=== PATIENT | male | born 1995 | race Two or more races ===

== ENCOUNTER 2020-05-14 00:58 | Emergency (ER) | payer MEDICAID ==
[~2020-05-14] VITALS: Ht 172.7 cm; Wt 77.1 kg
[2020-05-14 01:12] VITALS: BP 138/90
--- NOTE | 2020-05-14 01:12 | NUR ---
ED Nurse Note: pt ambulated into ed from home CO CP since 2100 this evening. Pt states that he had consumed edible marijuana which resulted in CP with some nausea. Pt aao x 4, ambulates with steady gait. VSS no ss of distress noted. Pt placed in gown on property assessment monitor. Awaiting ermd at bedside
--- NOTE | 2020-05-14 01:15 | NUR ---
ED Nurse Note: ERMD at bedside
--- NOTE | 2020-05-14 01:20 | NUR ---
ED Nurse Note: Anastasiia work sent to lab
[2020-05-14] MEDS ORDERED: Mylanta II UD 30ml ORAL ONE (01:30)
--- NOTE | 2020-05-14 01:30 | NUR ---
ED Nurse Note: all medications administered, pt tolerated well no ss of distress noted. will continue to monitor.
--- NOTE | 2020-05-14 01:42 | NUR ---
ED Nurse Note: xray at bedside
[2020-05-14 01:50] LABS: BASOPHILS % (AUTO) 1.2 % (0.0-2.0); EOSINOPHILS % (AUTO) 2.8 % (0.0-3.0); HEMATOCRIT 41.8 % (42.0-52.0); LYMPHOCYTES % (AUTO) 32.4 % (20.0-45.0); MEAN CORPUSCULAR VOLUME 86 FL (80-99); NEUTROPHILS % (AUTO) 56.6 % (45.0-75.0); PLATELET COUNT 229 K/UL (150-450); RED BLOOD COUNT 4.89 M/UL (4.70-6.10); RED CELL DISTRIBUTION WIDTH 11.4 % (11.6-14.8); WHITE BLOOD COUNT 9.8 K/UL (4.8-10.8)
[2020-05-14 02:01] LABS: ANION GAP 12 mmol/L (5-15); BLOOD UREA NITROGEN 17 mg/dL (7-18); CALCIUM 9.3 MG/DL (8.5-10.1); CARBON DIOXIDE 27 MMOL/L (21-32); CHLORIDE 101 MMOL/L (98-107); CREATININE 1.1 MG/DL (0.55-1.30); POTASSIUM 3.3 MMOL/L (3.5-5.1); SODIUM 139 MMOL/L (136-145)
[2020-05-14 02:05] LABS: ALANINE AMINOTRANSFERASE 42 U/L (12-78); ALBUMIN 4.1 G/DL (3.4-5.0); ALKALINE PHOSPHATASE 152 U/L (46-116); ASPARTATE AMINO TRANSFERASE 22 U/L (15-37); BILIRUBIN,TOTAL 0.2 MG/DL (0.2-1.0); CREATINE KINASE 150 U/L (26-308)
--- NOTE | 2020-05-14 03:07 | NUR ---
ED Nurse Note: all medications administered, pt tolerated well no ss of distress noted. will continue to monitor.
[2020-05-14] MEDS ORDERED: Morphine Sulfate 2mg/ml Inj(IV/IM USE ONLY) IVP ONE (03:15)
[2020-05-14 03:25] VITALS: BP 132/76
--- NOTE | 2020-05-14 03:48 | NUR ---
ED Nurse Note: Pt states IV causing pain. IV removed. No swelling, redness, warmth, or infiltration noted. ERMD aware.
--- NOTE | 2020-05-14 03:49 | Emergency Room Report ---
History of Present Illness General Chief Complaint: Chest Pain Source: Patient Present Illness HPI The patient presents with left-sided chest pain. He has had this pain before. He associates it with using marijuana. He feels sharp stabbing pain and points with one finger towards his left nipple the area. It is nonpleuritic. He rates the pain 7/10. Not exertional. He denies fevers or chills. There is no nausea or vomiting. It is somewhat positional. The pain causes him to feel somewhat anxious. He denies tingling in his hands, feet or around his mouth. The patient denies exposure to COVID-19 positive contacts. Risk factors for cardiac disease: Diabetes and smoking. No sore throat, palpitations, diarrhea, dysuria, abdominal pain, shortness of breath, joint pain, rashes, depression, visual changes, dizziness, headache. Allergies: Coded Allergies: No Known Allergies (Unverified , 05/14/20) COVID-19 Screening Contact w/high risk pt: No Experienced COVID-19 symptoms?: No COVID-19 Testing performed DENTAL FRONT OFFICE ASSISTANT: No Patient History Past Medical History: see triage record Social History: Reports: smoking, drug use - THC Social History Narrative from home Reviewed Nursing Documentation: PMH: Agreed; PSxH: Agreed Nursing Documentation-PMH Hx Diabetes: Yes Review of Systems All Other Systems: negative except mentioned in HPI Physical Exam Vital Signs Date Time Temp Pulse Resp B/P (MAP) Pulse Ox O2 Delivery O2 Flow Rate FiO2 05/14/20 01:02 98.4 57 16 138/90 (106) 98 Room Air Sp02 EP Interpretation: reviewed, normal General Appearance: well appearing, no apparent distress, GCS 15, non-toxic Head: normocephalic Eyes: bilateral eye PERRL, bilateral eye EOMI, bilateral eye Scleral Injection ENT: moist mucus membranes Neck: supple Respiratory: lungs clear, normal breath sounds Cardiovascular #1: regular rate, rhythm, no edema Cardiovascular #2: 2+ radial (R) Gastrointestinal: normal inspection, normal bowel sounds, non tender, no mass, non-distended Musculoskeletal: back normal, normal range of motion, no calf tenderness, gait/station normal Neurologic: alert, oriented x3, grossly normal Psychiatric: mood/affect normal - Slightly anxious Skin: no rash, warm/dry Medical Decision Making Diagnostic Impression: Primary Impression: Chest pain Qualified Codes: R07.9 - Chest pain, unspecified Additional Impression: Adverse reaction to cannabis Qualified Codes: T40.7X5A - Adverse effect of cannabis (derivatives), initial encounter ER Course Patient presents with chest pain and dysphoria after ingesting and smoking can nabis. Differential includes acute myocardial infarction, pneumothorax, pulmonary embolus, reflux esophagitis, esophageal spasm and adverse reaction to cannabis amongst others. Based on history and physical pulmonary embolus extremely unlikely. Patient evaluated with EKG, chest x-ray and labs. Patient treated with IV hydration, Tylenol, Mylanta and Pepcid. Patient placed on ca rdiac monitor. EKG normal sinus rhythm with minimal peaked T waves V1 V2. Chest x-ray poor inspiration. Normal CBC. Potassium minimally low. Troponin negative. Patient still complaining about 5/10 pain. Small dose of morphine administered. Pain resolved. No medical emergency at this time. Advised patient to abstain from cannabis. Advised patient follow-up with his own doctor. Patient stable for outpatient observation and treatment. Laboratory Tests Test 05/14/20 01:15 White Blood Count 9.8 K/UL (4.8-10.8) Red Blood Count 4.89 M/UL (4.70-6.10) Hemoglobin 15.0 G/DL (14.2-18.0) Hematocrit 41.8 % (42.0-52.0) L Mean Corpuscular Volume 86 FL (80-99) Mean Corpuscular Hemoglobin 30.7 PG (27.0-31.0) Mean Corpuscular Hemoglobin Concent 35.8 G/DL (32.0-36.0) Red Cell Distribution Width 11.4 % (11.6-14.8) L Platelet Count 229 K/UL (150-450) Mean Platelet Volume 8.2 FL (6.5-10.1) Neutrophils (%) (Auto) 56.6 % (45.0-75.0) Lymphocytes (%) (Auto) 32.4 % (20.0-45.0) Monocytes (%) (Auto) 7.0 % (1.0-10.0) Eosinophils (%) (Auto) 2.8 % (0.0-3.0) Basophils (%) (Auto) 1.2 % (0.0-2.0) Sodium Level 139 MMOL/L (136-145) Potassium Level 3.3 MMOL/L (3.5-5.1) L Chloride Level 101 MMOL/L (98-107) Carbon Dioxide Level 27 MMOL/L (21-32) Anion Gap 12 mmol/L (5-15) Blood Urea Nitrogen 17 mg/dL (7-18) Creatinine 1.1 MG/DL (0.55-1.30) Estimated Glomerular Filtration Rate > 60 mL/min (>60) Glucose Level 129 MG/DL (74-106) H Calcium Level 9.3 MG/DL (8.5-10.1) Total Bilirubin 0.2 MG/DL (0.2-1.0) Aspartate Amino Transferase (AST) 22 U/L (15-37) Alanine Aminotransferase (ALT) 42 U/L (12-78) Alkaline Phosphatase 152 U/L (46-116) H Total Creatine Kinase 150 U/L (26-308) Troponin I 0.003 ng/mL (0.000-0.056) Total Protein 8.4 G/DL (6.4-8.2) H Albumin 4.1 G/DL (3.4-5.0) Globulin 4.3 g/dL Albumin/Globulin Ratio 1.0 (1.0-2.7) EKG Diagnostic Results Rate: normal Rhythm: NSR ST Segments: no acute changes Rhythm Strip Diag. Results EP Interpretation: yes Rhythm: NSR, no PVC's, no ectopy Chest X-Ray Diagnostic Results Chest X-Ray Diagnostic Results : Chest X-Ray Ordered: Yes # of Views/Limited/Complete: 1 View Indication: Chest Pain EP Interpretation: Yes Interpretation: no consolidation, no effusion, no pneumothorax, other - Poor inspiration Impression: No acute disease Electronically Signed by: Electronically signed by Jose Jarrett MD Last Vital Signs Date Time Temp Pulse Resp B/P (MAP) Pulse Ox O2 Delivery O2 Flow Rate FiO2 05/14/20 04:00 98.4 85 16 135/82 99 Room Air Status: improved Disposition: HOME, SELF-CARE Condition: Improved Scripts Acetaminophen (Tylenol) 325 Mg Tablet 650 MG ORAL Q6H PRN for Prn Pain/Headache/Temp > 101, #20 TAB 0 Refills Prov: Jose Jarrett MD 05/14/20 Famotidine* (Pepcid 20mg tablet*) 20 Mg Tablet 20 MG ORAL DAILY for Gerd, #20 TAB 0 Refills Prov: Jose Jarrett MD 05/14/20 Referrals: NOT CHOSEN IPA/,REFERRING (PCP) Jose Jarrett MD May 14, 2020 03:49
--- NOTE | 2020-05-14 03:50 | NUR ---
ED Nurse Note: ERMD at bedside
[2020-05-14] MEDS ORDERED: FAMOTIDINE20 MG ORAL (03:52)
[2020-05-14] MEDS ORDERED: TYLENOL325 MG ORAL (03:52)
[2020-05-14 04:00] VITALS: BP 135/82
--- NOTE | 2020-05-14 04:00 | NUR ---
ER DISCHARGE NOTE: Patient is cleared to be discharged home per ERMD, pt is aox4, 99% on room air, with stable vital signs. pt was given dc and prescription instructions, pt was able to verbalize understanding, pt id band and iv site removed without complications. pt is able to ambulate with steady gait. pt took all belongings.
--- NOTE | 2020-05-16 06:18 | Diagnostic Imaging Report ---
EXAM: XR Chest, 1 View CLINICAL HISTORY: CP TECHNIQUE: Frontal view of the chest. COMPARISON: No relevant prior studies available. FINDINGS/ IMPRESSION: There are low lung volumes with resultant bronchovascular crowding, limiting evaluation. Mild increased streaky opacification of the right mid to lower thorax is noted, nonspecific. This may represent focus of infection, inflammation, or asymmetric edema. Consider correlation with chest CT for better characterization. There is no definite pleural effusion or pneumothorax. However, the lung bases are not well evaluated due to poor inspiration. The heart size is mildly prominent.
== END 2020-05-14 04:00 | disposition home or self-care (01) ==
LOC: EMR 01:22
DX: R07.9 Chest pain, unspecified (principal); T40.7X5A Adverse effect of cannabis (derivatives), initial encounter; X58.XXXA Exposure to other specified factors, initial encounter; Y92.9 Unspecified place or not applicable
CPT/HCPCS: 36415; 71045; 80053; 82550; 84484; 85025; 93005; 96361; 96374; 96375; J2270; J7030; S0028; Z7502; 99284

== ENCOUNTER 2020-07-17 15:12 | Emergency (ER) | payer MEDICAID ==
[~2020-07-17] VITALS: Ht 170.2 cm; Wt 74.8 kg
[~2020-07-17 15:12] MED LIST: FAMOTIDINE20 MG ORAL; TYLENOL325 MG ORAL
--- NOTE | 2020-07-17 15:20 | NUR ---
ED Nurse Note: Pt ambulated to ED from home d/ recurrent chest pain on his left side that radiates on his back. Pt is AOx4, calm and cooperative to care, surinamese in speaking, VSS, on RA, afebrile on triage. NSR on EKG. Placed on bed and gown. Pt denies any other symptoms.
--- NOTE | 2020-07-17 15:43 | NUR ---
ED Nurse Note: x-ray at bedside done.
[2020-07-17 15:44] VITALS: BP 127/69
--- NOTE | 2020-07-17 16:32 | Diagnostic Imaging Report ---
EXAM: XR Chest, 1 View CLINICAL HISTORY: PAIN TECHNIQUE: Frontal view of the chest. COMPARISON: Chest radiograph On 05/14/2020 FINDINGS: Hardware: None. Lungs/pleura: Normal. No focal consolidation. No pleural effusion or pneumothorax. Heart/mediastinum: Normal. No cardiomegaly. Soft tissues: Unremarkable. Bones: No acute fracture. Upper abdomen: Normal. IMPRESSION: No acute disease identified.
[2020-07-17] MEDS ORDERED: Lidocaine 2% Visc 15ml soln ORAL ONE (16:45)
[2020-07-17] MEDS ORDERED: Mylanta II UD 30ml ORAL ONE (16:45)
[2020-07-17] MEDS ORDERED: Ketorolac 30mg Inj IM ONE (16:45)
--- NOTE | 2020-07-17 16:52 | Emergency Room Report ---
History of Present Illness General Chief Complaint: Pain Source: Patient Present Illness HPI 24-year-old male with no significant past medical history presents to the emergency department complaining of 6 out of 10 severity pain in the epigastric area as well as back shoulder blade area intermittently x4 days. Patient reports he has had similar symptoms in the past and was evaluated but never had any specific diagnosis. He reports the pain in his epigastric area is most significant and he reports it being worse after eating. Patient also states if he bends forward or presses on his stomach in that area he has exacerbation as well. Patient denies nausea or vomiting. He denies fevers or chills. He denies constipation, diarrhea or blood in the stool or black tarry stools. Patient denies history of acid reflux. He denies recent upper respiratory symptoms or illness. Patient reports he does do some strenuous activities at his job. He states he is right-hand dominant. Patient reports his grandmother has the only cardiac familial history and reports onset at older age. He denies palpitations, dizziness, syncope or paresthesias. He reports he has not attempted to try any mutd-nzh-mrbmywm pain medications in any attempt to relieve his symptoms. He denies tobacco use and reports intermittent THC use. He denies history of asthma or COPD. Allergies: Coded Allergies: No Known Allergies (Unverified , 05/14/20) COVID-19 Screening Contact w/high risk pt: No Experienced COVID-19 symptoms?: No COVID-19 Testing performed HOME CHILD CARE PROVIDER: No Patient History Past Medical History: see triage record Past Surgical History: none Pertinent Family History: none Reviewed Nursing Documentation: PMH: Agreed; PSxH: Agreed Nursing Documentation-PM Past Medical History: No Stated History Hx Diabetes: Yes Review of Systems All Other Systems: negative except mentioned in HPI Physical Exam Vital Signs Date Time Temp Pulse Resp B/P (MAP) Pulse Ox O2 Delivery O2 Flow Rate FiO2 07/17/20 15:18 98.1 75 20 127/69 (88) 97 Room Air Sp02 EP Interpretation: reviewed, normal General Appearance: no apparent distress, alert, GCS 15, non-toxic Head: normocephalic, atraumatic Eyes: bilateral eye normal inspection, bilateral eye PERRL ENT: hearing grossly normal, normal voice Neck: full range of motion Respiratory: chest non-tender, lungs clear, normal breath sounds, no respiratory distress, no accessory muscle use, no wheezing, speaking full sentences Cardiovascular #1: regular rate, rhythm, no edema, normal capillary refill Gastrointestinal: normal bowel sounds, soft, no peritonitis, non-distended, no guarding, tenderness - mild epigastric ttp. Musculoskeletal: back normal, normal range of motion, gait/station normal, tender - TTP to the Left pectoralis area, in the left mid axillary area, and le ft shoulder blade. FROM of left shoulder no clicking or cracking, normal strength. Neurologic: alert, motor strength/tone normal, oriented x3, sensory intact, responsive, speech normal, normal gait Psychiatric: judgement/insight normal Skin: no rash, normal color Medical Decision Making PA Attestation Dr. Khanna is my supervising Physician whom patient management has been discussed with. Diagnostic Impression: Primary Impression: Acute nonspecific chest pain with low risk of coronary artery disease Additional Impression: Epigastric burning sensation ER Course 24-year-old male with no significant past medical history presents to the emergency department complaining of 6 out of 10 severity pain in the epigastric area as well as back shoulder blade area intermittently x4 days. Patient reports he has had similar symptoms in the past and was evaluated but never had any specific diagnosis. He reports the pain in his epigastric area is most significant and he reports it being worse after eating. Patient also states if he bends forward or presses on his stomach in that area he has exacerbation as well. Patient denies nausea or vomiting. He denies fevers or chills. He denies constipation, diarrhea or blood in the stool or black tarry stools. Patient denies history of acid reflux. He denies recent upper respiratory symptoms or illness. Patient reports he does do some strenuous activities at his job. He states he is right-hand dominant. Patient reports his grandmother has the only cardiac familial history and reports onset at older age. He denies palpitations, dizziness, syncope or paresthesias. He reports he has not attempted to try any lfmr-jfy-lbzzpmd pain medications in any attempt to relieve his symptoms. He denies tobacco use and reports intermittent THC use. He denies history of asthma or COPD. Ddx considered but are not limited to [place], pneumonia, contusion, costochondritis, PE, ACS, Shoulder strain, Chest wall contusion. aortic dissection, gastritis, pancreatitis just to name a few Vital signs: are WNL, pt. is afebrile H&PE are most consistent with nonpleuritic chest pain which is reproducible with palpation in the left shoulder area as well as epigastric area. Patient without any cardiac risk factors. Patient is nontoxic in appearance and in no acute distress. Patient is not obese. Patient not in any respiratory distress. Speaking full sentences. No evidence to suggest acute abdomen on exam. Review of chart from previous visit 1.5 months ago shows full cardiac work-up that was unremarkable. ORDERS: - EK NSR CXR: WNL/ unremarkable ED INTERVENTIONS: -Toradol IM -Patient given Pepcid as well as GI cocktail. Upon reassessment patient reports improvement in his symptoms. -I do not identify an emergent condition at this time. With current presentation, pt. is stable for close outpatient follow up and conservative treatment. D/w pt. to return promptly to ED with worsening or new symptoms.- Pt. verbalizes' understanding and agreement with proposed treatment plan. DISCHARGE: At this time pt. is stable for d/c to home. Will provide printed patient care instructions, and any necessary prescriptions. Care plan and follow up instructions have been discussed with the patient prior to discharge. EKG Diagnostic Results Troponin ordered: No - Patient without cardiac risk factors and normal EKG. Gastritis symptoms EKG Time: 15:37 Rate: normal - 61 Rhythm: NSR ST Segments: no acute changes ASA given to the pt in ED: No PA Scribe Text This Interpretation was scribed by CAROLYNE Mayfield. Chest X-Ray Diagnostic Results Chest X-Ray Diagnostic Results : Chest X-Ray Ordered: Yes # of Views/Limited/Complete: 1 View Indication: Chest Pain EP Interpretation: Yes CAROLYNE Xray: Interpretation reviewed, by supervising MD, and agrees with findings. Interpretation: no consolidation, no effusion, no pneumothorax, no acute cardiopulmonary disease Impression: No acute disease Electronically Signed by: Bri mayfield PA-C Last Vital Signs Date Time Temp Pulse Resp B/P (MAP) Pulse Ox O2 Delivery O2 Flow Rate FiO2 07/17/20 15:44 98.1 20 127/69 97 Room Air 07/17/20 15:18 75 Disposition: HOME, SELF-CARE Condition: Stable Scripts Acetaminophen* (TYLENOL EXTRA STRENGTH*) 500 Mg Tablet 500 MG ORAL Q6H, #30 TAB 0 Refills Prov: Bri Mayfield 07/17/20 Mag Hydrox/Aluminum Hyd/Simeth (Mylanta Maximum Strength Liq) 355 Ml Oral.susp 30 ML PO BID, #355 ML Prov: Bri Mayfield 07/17/20 Famotidine* (Pepcid 20mg tablet*) 20 Mg Tablet 20 MG ORAL TWICE A DAY for Gerd for 10 Days, #20 TAB 0 Refills Prov: Bri Mayfield 07/17/20 Referrals: NOT CHOSEN IPA/,REFERRING (PCP) Jenae Foster Comp. [facility] Patient Instructions: Gastritis, Adult, [id number], Nonspecific Chest Pain, [id number] Additional Instructions: ~ ~ An emergent medical condition has not been identified based on this patients presentation, exam and any necessary testing/imaging. The patient is determined to be stable for outpatient follow-up and management of symptoms by a primary care provider. Take medications as directed. Follow up with a Primary Care Provider in 3-5 days, even if your symptoms have resolved. --Please review list of primary care clinics, if you do not already have a primary care provider Return sooner to ED if new symptoms occur, or current symptoms become worse. - Please note that this Emergency Department Report was dictated using Pacinianmusic writer technology software, occasionally this can lead to erroneous entry secondary to interpretation by the dictation equipment. Bri Mayfield Jul 17, 2020 16:52
[2020-07-17] MEDS ORDERED: TYLENOL EXTRA500 MG ORAL (16:54)
[2020-07-17] MEDS ORDERED: FAMOTIDINE20 MG ORAL (16:54)
[2020-07-17] MEDS ORDERED: MYLANTA MAXIMU355 ML PO (16:54)
[2020-07-17 17:28] VITALS: BP 115/72
--- NOTE | 2020-07-17 17:28 | NUR ---
ER DISCHARGE NOTE: Patient is cleared to be discharged per ERPA, pt is aox4, on room air, with stable vital signs. pt was given dc and prescription instructions, pt was able to verbalize understanding, pt id band removed. pt is able to ambulate with steady gait. pt took all belongings.
== END 2020-07-17 17:28 | disposition home or self-care (01) ==
LOC: EMR 16:38
DX: R07.89 Other chest pain (principal); R10.13 Epigastric pain; E11.9 Type 2 diabetes mellitus without complications
CPT/HCPCS: 71045; 93005; 96372; J1885; Z7502; 99283